=== PATIENT | male | born 1980 | race Caucasian/White ===

== ENCOUNTER 2016-11-27 19:30 | Observation (INO) | payer OTHER ==
[~2016-11-27] VITALS: Ht 167.6 cm; Wt 74.6 kg
[2016-11-27 19:48] VITALS: BP 136/88; PULSE 101; RESP 18; O2SAT 98
--- NOTE | 2016-11-27 20:34 | ED.REPORT ---
HPI-General Illness Date of Service Nov 27, 2016 ED Provider: Dr. Torres The pt is a 36 y/o male with a hx of ADD and recent appendectomy who presents to the ED complaining of worsening "1110" RLQ abdominal pain, onset today. The pt had an emergency open appendectomy at [facility] 2 days ago and was discharged earlier today. He did not experience any pain after surgery until today. He describes it as sharp pain which is exacerbated with movement and relieved at rest. He had a small BM this morning. He is also concerned about worsening erythema around his umbilical incision. He also reports mild, transient testicular pain earlier today which resolved soon after. He denies fever, chills, constipation, diarrhea, and any other sx at this time. The pt took 5 mg oxycodone about 30 minutes ago Nursing Notes Stated Complaint: POST OP ABDOMINAL PAIN Chief Complaint: Male Abdominal Pain Nursing Notes Reviewed: Yes Allergies: Coded Allergies: No Known Allergies (Unverified , 11/27/16) General Time Seen by MD: :17 Chief Complaint Abdominal pain Hx Obtained From: Patient Arrived By: Walk-in Sudden in Onset?: Yes Onset Occurred: 1 - 4 hours ago Symptom Duration: Since onset Location: : Abdomen Quality: Painful Radiation: : Does not radiate Severity: Current: Severe ("01/15") Severity: Maximum: Severe Recent Healthcare: Recent doctor visit, Previous surgery Past Medical History Past Medical History ADHD Past Surgical History Reports: Appendectomy Family History Denies pertinent family history Social History Alcohol Use: "Social" Other Social History: Good social support, Ambulatory Status Independent Review of Systems Reports: erythema around the umbilical incision Full Review of Systems Constitutional: Denies: Chills, Fever Eyes: Denies: Visual loss bilateral Ears / Nose / Throat: Denies: Sore throat Respiratory: Denies: Shortness of breath Cardiovascular: Denies: Chest pain GI: Reports: Abdominal pain, Denies: Constipation, Diarrhea Male: Reports Testicular pain (resolved), Denies Scrotal swelling, Denies Testicular swelling Musculoskeletal: Denies: Back pain Hematologic: Denies Bleeding Endocrine: Denies: Polyuria Skin: Denies Rash Allergy / Immune: Denies: Itching Neurologic: Denies: Headache Psychiatric: Denies: Change mental status Complete sys rev & neg: except as marked. Physical Exam Nursing note and vitals reviewed. Constitutional: Well-developed, well-nourished. Not diaphoretic, but appears uncomfortable. Head: Normocephalic and atraumatic. Mouth/Throat: Oropharynx is clear and moist. No oropharyngeal exudate. Eyes: EOM are normal. Pupils are equal, round, and reactive to light. Neck: Supple, no tracheal deviation. Cardiovascular: Normal rate, regular rhythm. Equal and intact distal pulses throughout. Pulmonary/Chest: Effort normal and breath sounds normal. No respiratory distress. Abdominal: Soft. Mild distension. Umbilical incision site appears intact with 8cm of surrounding erythema. There is no induration and fluctuance. RLQ tenderness without rebound or guarding. Mild erythema around the right laparotomy site. Bowel sounds present. Musculoskeletal: Range of motion grossly intact, moving all extremities. No edema or tenderness appreciated. Neurological: AOx3. Grossly nonfocal exam. Strength and sensation intact and equal to bilateral upper and lower extremities. Skin: Warm and dry, no rashes or pallor appreciated. Psychiatric: Appropriate mood and affect. Behavior appears normal. Male : No testicular tenderness, masses, or swelling. Vital Signs Vital Signs Date Time Temp Pulse Resp B/P Pulse Ox O2 Delivery O2 Flow Rate FiO2 11/27/16 19:48 37.2 101 18 136/88 98 Room Air Initial VS: Reviewed Interpretation & Diagnostics Lab Results Interpretation Result Diagram: 11/27/16214211/27/162142 Test 11/27/16 21:43 11/27/16 22:50 White Blood Count 10.6th/mm3 (3.8-10.1) Red Blood Count 4.96mil/mm3 (4.40-5.80) Hemoglobin 14.9g/dL (13.8-17.2) Hematocrit 44.3% (41.0-50.0) Mean Corpuscular Volume 89.3fL (81-100) Mean Corpuscular Hemoglobin 30.0pg (27.0-35.0) Mean Corpuscular Hemoglobin Concent 33.6% (32.0-37.0) Red Cell Distribution Width 12.7% (12.3-15.4) Platelet Count 302bil/L (150-400) Neutrophils (%) (Auto) 73.2% (40-74) Lymphocytes (%) (Auto) 18.1% (14-46) Monocytes (%) (Auto) 5.3% (4-12) Eosinophils (%) (Auto) 2.9% (0-5) Basophils (%) (Auto) 0.3% (0-3) Sodium Level 139mEq/L (134-144) Potassium Level 4.3mEq/L (3.5-5.2) Chloride Level 102mEq/L (97-108) Carbon Dioxide Level 19mmol/L (18-29) Blood Urea Nitrogen 11mg/dL (6-20) Creatinine 0.93mg/dL (0.76-1.27) Estimat Glomerular Filtration Rate 99mL/min (>59) Glucose Level 92mg/dL (60-99) Lactic Acid Level 1.4mmol/L (0.4-2.0) Calcium Level 9.1mg/dL (8.5-10.1) Total Bilirubin 0.4mg/dL (0.0-1.2) Aspartate Amino Transf (AST/SGOT) 23U/L (0-50) Alanine Aminotransferase (ALT/SGPT) 32U/L (0-44) Alkaline Phosphatase 99U/L (25-150) Total Protein 7.1g/dL (6.4-8.4) Albumin 4.3g/dL (3.4-5.0) Hold Purple Top Tube Received (Received) Hold Blue Top Tube Received (Received) Hold Corder Top Tube Received (Received) CT Abd / Pelvis Interpretation Approximate 5x3.6x5.3 cm fluid collection in the right lower paracolic gutter. There is no clear rim enhancement. This may represent postoperative fluid but I cannot exclude early/developing abscess. Mild pneumoperitoneum and soft tissue emphysema in the body wall consistent with recent surgery. Residual/resolving cecal colitis. No small bowel dilation. Moderate fecal debris in the ascending colon. Signed by Dr. Kristian Jay 11/27/16 23:28 Study type: Abdominal CT IV contrast Re-Eval/Medical Decision Med Decision/Clinical Course In summary, 36-year-old male with a history notable for recent appendicitis status post appendectomy 2 days ago at [facility] presenting to the ED for evaluation of worsening abdominal pain since earlier today. Differential is broad and includes postsurgical infection, perforated viscus, peritonitis, necrotizing infection of the skin and soft tissue. Currently afebrile, however appears uncomfortable. There is some surrounding erythema around his umbilical incision that he states is new since earlier today. Mild distention and moderate tenderness to palpation throughout without rebound or guarding. CT scan demonstrates a 5 x 4 x 5 cm fluid collection in the right lower paracolic gutter that may be postoperative fluid but cannot exclude early/developing abscess, as well as the other findings noted above. Given the patient's significant pain and concern for soft tissue infection after recent surgery, Dr. Shelton was consulted; appreciate his involvement. Laboratory studies reviewed, notable for a white blood cell count of 10.6, otherwise CBC grossly within normal limits. CMP grossly within normal limits, mildly tachycardic upon arrival with a temperature of 37.2, otherwise vitals grossly within normal limits. Patient given IV fluids and morphine here in the ED with mild improvement in symptoms. After discussion with Dr. Shelton, he contacted [facility] to discuss the patient given his recent discharge. After further discussion with the patient, decision was made to admit for further management and evaluation, start the patient on IV antibiotics, and monitor his incision. Patient agreeable to the plan as stated, no further questions. Time of Eval: 22:23 Re-Evaluation/Progress Note: xray done. will consult surgeon. if labs and imaging ok. will be dc wilth abx. Time of Eval: 00:06 Re-Evaluation/Progress Note: Dr. Kam at bedside, discussing the options to discharge the pt to [facility] or admit here. Consultation #1: Referral / Consult Name: Gen Kam MD Consulted With: Surgeon Call Returned at: 23:16 [employer] Crew Lead: Will see patient Note: Dr. Kam will see the pt in the ED. Consultation #2: Referral / Consult Name: Gen Kam MD Consulted With: Surgeon Call Returned at: 23:37 Note: Dr. Kam saw the pt. He will call [facility] to confirm they will admit the pt. Consultation #3: Referral / Consult Name: Gen Kam MD Consulted With: Surgeon Call Returned at: 00:06 Note: As per Dr. Kam, [facility] recommends the pt return to the ED there and may admit him depending on the evaluation. Counseled Regarding: Diagnosis, Lab results, Need for admission Discharge & Departure Primary Impression: Wound infection after surgery Encounter type: initial encounter Qualified Code: T81.4XXA - Infection following a procedure, initial encounter Disposition: ADMITTED TO HOSPITAL Referrals: Caleb Zamarripa DO (PCP) Scribe Attestation Portions of this note were transcribed by Betsey Tran. I,, personally performed the history,physical exam and medical decision-making;I reviewed and confirmed the accuracy of the information in the transcribed note. Signed by Matt Freitas. 11/27/16 copies to: Caleb Zamarripa William B MD Nov 27, 2016 20:34 Betsey Tran Nov 27, 2016 22:26
[2016-11-27 21:49] LABS: BASOPHILS % (AUTO) 0.3 % (0-3); EOSINOPHILS % (AUTO) 2.9 % (0-5); MONOCYTES % (AUTO) 5.3 % (4-12); Mean Corpuscular Volume 89.3 fL (81-100); NEUTROPHILS % (AUTO) 73.2 % (40-74); Platelet Count 302 bil/L (150-400)
[2016-11-27] MEDS ORDERED: 0.9% Sodium Chloride 1,000 ML IV ONE (22:25)
[2016-11-28] MEDS ORDERED: HYDROmorphone 1 mg/mL Inj IVPUSH PRN (00:25)
[2016-11-28] MEDS: Sodium Chloride LOK Flush 10 mL Syringe IVFLUSH SCH ×2 (00:30→09:55)
[2016-11-28] MEDS: Clindamycin Inj 600 MG in IV Premix 1 EACH IV SCH ×2 (01:10→09:55)
[2016-11-28 01:33] VITALS: PULSE 98; RESP 22
[2016-11-28] MEDS: Piperacillin-Tazo 3.375 Gm Inj 3.375 GM in Dextrose 5% Minibag Plus 50 ML IV SCH ×2 (01:50→10:52)
[2016-11-28 02:00] VITALS: BP 124/78; PULSE 93; RESP 24; O2SAT 100
[2016-11-28] MEDS ORDERED: DEXT10TA8 PO (02:29)
--- NOTE | 2016-11-28 03:04 | NUR ---
Admit Patient arrived from ED at 0135. Patient A&OX3. Complains of abdominal pain 09/14. Peripheral IV Patent. by bedside. Vitals stable. Report given by Chantell XIONG.
--- NOTE | 2016-11-28 04:44 | HP ---
[address] [address] HISTORY AND PHYSICAL PATIENT: MACKENZIE KOO : 1980 MR#: [id number] ADMIT: 11/28/2016 JOB ID: [id number] DATE OF SERVICE: 11/28/2016 CHIEF COMPLAINT/IDENTIFICATION: A 36-year-old male with the postoperative pain and erythema on his wound. HISTORY OF PRESENT ILLNESS: The patient presented to [facility] and underwent a laparoscopic converted to open appendectomy. According to the patient and his , surgery ended around midnight Wednesday night/ morning, and the patient was told that they had to convert to open surgery because the appendix was behind the colon. He reports that he was told his appendix had not perforated, and he was discharged this morning from [facility] on no antibiotic. He reports that this morning he was passing gas and had a bowel movement this morning and was taking regular food. He was discharged from [facility] and came up to his home on [place] where he noted transient testicular pain that resolved, gas pains and bloating and became quite concerned as his wound became markedly erythematous compared to this morning. His has photos from this morning that we can compare to his exam now. PAST MEDICAL HISTORY: ADD. post concussive syndrome. MEDICATIONS: P.r.n. oxycodone since his surgery. ALLERGIES: None. SOCIAL HISTORY: Lives on [place] with his /significant other. He denies tobacco use, denies the use of alcohol on a daily basis. REVIEW OF SYSTEMS: Per Dr. Torres, see ER note. PHYSICAL EXAMINATION: Vital signs recorded in the EMR. His temperature is 37.2, his pulse is 101, his blood pressure is 136/88. His room air saturation is 98. His BMI is recorded at 26. HEENT: Normocephalic, atraumatic, facial tattoos, spaces for gauges in his earlobes. Neck is supple. Lungs are clear. Heart sounds are regular. His abdomen is fairly distended, somewhat quiet, somewhat tympanic. He has a periumbilical laparoscopic incision as well as two others and he has a right lower quadrant McBurney's incision there. They are all closed with Dermabond. He has marked erythema that blanches on both the periumbilical and the right lower quadrant incision with tenderness, without any drainage from the wounds. He does not have peritonitis. Extremities are without edema. Neurologically he is intact. LABORATORIES: Show white count of 10.6, hematocrit of 44, platelet count of 302. Normal chemistries. Normal liver function tests. Lactic acid 1.4. CT scan: [facility] and I have reviewed both the images and the [facility] report. I have concurred that these are findings consistent with being postop day 1-2 status post laparoscopic converted to open appendectomy without any obvious intraabdominal abscess though there is slightly more fluid and inflammatory reaction around the cecum than one would hope for from an uncomplicated appendectomy. IMPRESSION AND PLAN: A 36-year-old man who may simply be having an exacerbation of normal postoperative pain due to early discharge and transportation, but with his complaint of increased pain in association with increased erythema on his wounds, I am concerned that this represents an early postoperative soft tissue infection that needs to be taken seriously. I have talked to Dr. Mejias, the surgeon home restoration service cleaner down at [facility], and he agrees that ideally the patient would be reevaluated by the primary operating team. He is open to having the patient transferred down there from our ER to be seen in their emergency department but cannot guarantee me that he would necessarily admit the patient. Therefore I offered Mr. Lima the option of returning to [facility] with the possibility that he would simply be seen and discharged without any further treatment versus I being willing to admit him to our service here for treatment of possible early soft tissue infection following appendectomy with IV antibiotics and reevaluation in the morning. I have outlined a tentative plan to him of admitting [facility] with reevaluation with repeat examination and repeat white count in the morning. If he seems clinically stable and has no real change in his erythema, we may chalk that up to perioperative trauma and send him out without further antibiotics. If he does respond to antibiotics with an improved appearance of his wound, he will likely be discharged on oral antibiotics. The patient is seen tonight with Dr. Duenas who will be working with Dr. Street this weekend, and therefore there will be some continuity of exams. Given options, the patient elected to stay with us. We will admit him and put him on IV antibiotics.
[2016-11-28 06:00] VITALS: BP 113/69; PULSE 82; RESP 20; O2SAT 95
[2016-11-28 07:27] LABS: BASOPHILS % (AUTO) 0.3 % (0-3); EOSINOPHILS % (AUTO) 3.5 % (0-5); MONOCYTES % (AUTO) 9.8 % (4-12); Mean Corpuscular Hemoglobin 30.2 pg (27.0-35.0); NEUTROPHILS % (AUTO) 64.4 % (40-74); Platelet Count 273 bil/L (150-400)
[2016-11-28] MEDS ORDERED: Senna-Docusate 8.6-50 mg Tablet PO SCH (08:30)
[2016-11-28] MEDS ORDERED: Polyethylene Glycol (PEG) 17 Gm Powder PO SCH (08:30)
[2016-11-28] MEDS ORDERED: Sodium Biphos-Phos 133 mL Enema RECTAL PRN (08:50)
--- NOTE | 2016-11-28 08:56 | PCM.PNSURG ---
Subjective Date of Service: Nov 28, 2016 Date of Service: Nov 28, 2016 Visit Information: Reason for Visit Post Surgical Wound Infection Surgery/Surgery Date Post-Op Day # 4 (at [facility] in [place]) Date of Admission: Nov 28, 2016 at 01:21 Hospital Day # 1 Subjective: Feels like wounds actually look less red. Still has continued abdominal bloating , distension and RLQ discomfort. Unable to pass gas and feels like he really needs to. Willing to try suppository. Tolerating some fluids PO without N/V. WBC down and afebrile overnight. Objective Vital Sign- Last 8 Hours Date Time Temp Pulse Resp B/P Pulse Ox O2 Delivery O2 Flow Rate FiO2 11/28/16 06:00 36.8 82 20 113/69 95 Room Air 11/28/16 02:00 36.9 93 24 124/78 100 Room Air 11/28/16 01:33 98 22 Intake and Output- Last 8 Hour 11/28/16 Cumulative From/Thru 06:58 11/27/16 19:48 - 11/28/16 06:49 Intake Total 1150 ml 1150 ml Balance 1150 ml 1150 ml IV Total 1150 ml 1150 ml General: Alert, Oriented X3, Cooperative, No Acute Distress Lungs: Other (Breathing comfortably on room air.) Heart: Other (Hemodynamically normal. No tachycardia.) Abdomen: Other (Moderate distension. RLQ incision and two port site wounds with dermabond and surround blanching erythema that appears slightly improved or stable from admission. No fluctuance, drainage.) Neuro: Grossly Neurologically Intact Result Diagram: 11/28/16 0715 11/27/16 2143 Assessment & Plan Impression 36 yo M with acute appendicitis s/p laparoscopic converted to open appendectomy at [facility] on 11/25 and discharged on 11/27. Presented to [facility] with worsening abdominal pain, distension and new erythematous skin surrounding all abdominal incisions. Admitted for IV antibiotics, wound observation and bowel regimen. Received clindamycin and zosyn with subjective improvement or dawson wound erythema and leukocytosis resolved. Continues to have abdominal distension and bloating without good bowel function. Problems: Plan Pain: prn oxycoodone, tylenol, ibuprofen CV/P: no issues FEN/GI: Regular diet as tolerated, anti emetics prn, bowel regimen BID miralax/ shawn-docusate, bisacodyl suppository this morning to encourage gas and BM, if unsuccessful try enema. Heme/ID: leukocytosis resolved, afebrile, unclear etiology of mild leukocytosis and dawson wound erythema could be bruising or dermabond reaction. Plan to observe for clinical improvement in abdominal pain this morning and likely transition to Augmentin PO Dispo: Potential discharge today versus tomorrow on 7 day course of oral antibiotics. Will await return of bowel function and improvement in abdominal pain. Ruth Duenas MD Nov 28, 2016 08:56
--- NOTE | 2016-11-28 08:57 | DRSVH ---
PROCEDURE: CT ABDOMEN AND PELVIS WITH CONTRAST ([id number]) INDICATIONS: Appendectomy 48 hours ago TECHNIQUE: After the administration of intravenous contrast, 5 mm thick sections acquired from the diaphragm to the symphysis. 5 mm coronal and sagittal reformats were acquired. For radiation dose reduction, the following was used: automated exposure control, adjustment of mA and/or kV according to patient siz e. COMPARISON: None. FINDINGS: Image quality: Excellent. ABDOMEN: Lung bases: Linear streaky opacities are present within the bases bilaterally. Solid organs: Liver is enlarged with steatosis. The spleen is normal in size and enhancement. Gallb ladder is unremarkable. Biliary system is non dilated. Pancreas enhances normally. No adrenal nodu les. Kidneys demonstrate normal size and enhancement, without hydronephrosis. Peritoneum and bowel: Bowel loops are nonobstructed. There is a mild appearance of thickening around the cecum suspected to be resolving post inflammatory change. No free fluid or air. There is promin ent stool within the descending colon. Scattered mild free fluid is present within the right lower qu adrant without rim-enhancing abscess. Largest area measures 5 cm. Punctate free air is noted within t he abdomen consistent with recent surgery. Nodes and vessels: No retroperitoneal or mesenteric adenopathy by size criteria. Aorta and inferior vena cava are normal in size. Miscellaneous: Containing hernia Subcutaneous air is present along the anterior abdomen. PELVIS: Genitourinary: Bladder wall thickness is normal. Miscellaneous: No inguinal hernias or adenopathy. Bones: No suspicious bony lesions. No vertebral body compression fractures. IMPRESSION: 1. Status post appendectomy with scattered free fluid in the right lower quadrant without well-define d rim-enhancing abscess. Subcutaneous air as well as minimal pneumoperitoneum is noted consistent wit h postoperative change. Continued interval clinical and imaging followup is recommended. Dictated by: Amy Neff M.D. on 11/28/2016 at 8:41 Approved by: Amy Neff M.D. on 11/28/2016 at 8:55
--- NOTE | 2016-11-28 09:13 | DRSVH ---
PROCEDURE: X-RAY CHEST ONE VIEW ([id number]) INDICATIONS: abdominal pain s/p appy; eval free air, other abnl TECHNIQUE: One view of the chest was acquired. COMPARISON: None. FINDINGS: Surgical changes and devices: None. Lungs and pleura: No pleural effusions or pneumothorax. Lungs are clear. Mediastinum: Mediastinal contours appear normal. Heart size is normal. Bones and chest wall: No suspicious bony lesions. Overlying soft tissues appear unremarkable. IMPRESSION: No acute pulmonary process. Dictated by: Amy Neff M.D. on 11/28/2016 at 9:11 Approved by: Amy Neff M.D. on 11/28/2016 at 9:11
[2016-11-28 09:14] VITALS: BP 114/71; PULSE 87; RESP 17; O2SAT 96
--- NOTE | 2016-11-28 12:08 | PCM.DISURG ---
Surgical Discharge Instruction Date of Service Nov 28, 2016 Dates of Hospitalization Date of Hospital Admission Nov 28, 2016 at 01:21 Providers Admitting Physician: Gen Kam MD Primary Care Physician: Other,Physician Attending Physician: Gen Kam MD Diet Discharge Diet: Other (Avoid constipating foods, stick to easy to digest items - smoothies, prune juice, avoid raw vegetables until have regular bowel movements.) Activity Discharge Activity-General: Balance rest and activity, No lifting >15 pounds for 2 weeks Dressing and Incisional Care Hygiene: May shower Additional Instructions Discharge Instructions Take prescribed antibiotic - 5 days of Augmentin. Follow Up Plan Follow Up Plan Follow up as scheduled with your surgical team at [facility]. If issues between now and appointment, please call our General Surgery clinic to be seen. Ruth Duenas MD Nov 28, 2016 12:08
[2016-11-28] MEDS ORDERED: Acetaminophen PO (12:12)
[2016-11-28] MEDS ORDERED: AMOX-366 PO (12:12)
[2016-11-28] MEDS ORDERED: IBUP-1827 PO (12:12)
[2016-11-28] MEDS ORDERED: OXYC-530 PO (12:12)
[2016-11-28] MEDS ORDERED: POLY17PO6 PO (12:12)
--- NOTE | 2016-11-28 12:45 | NUR ---
Social Work: Screening/Discharge/Multidisciplinary Rounds D: EMR reviewed. Pt is a 36 y/o male admitted [facility] - no readmit score assigned - for post surgical wound infection per H&P. Pt's insurance is [employer]. Pt's NOK is spouse Tory Mistry ([phone]). Pt lives at home with family on [place]. SW screened pt's EMR - pt does not screen in for full assessment. Pt encouraged to provide completed copy of DPOA/advanced directive ppw to hospital. SW discussed pt in multidisciplinary rounds regarding potential discharge planning needs. No anticipated discharge needs identified, no MD orders received. A: Pt who is independent at baseline. P: Pt to discharge home with spouse via POV. Pt does not have concerns regarding discharge. SW discussed pt in multidisciplinary rounds regarding potential discharge planning needs. No anticipated discharge needs identified, no MD orders received. BARRY Dorman
[2016-11-28 12:57] VITALS: BP 128/85; PULSE 94; RESP 18; O2SAT 99
--- NOTE | 2016-11-28 13:35 | NUR ---
DISCHARGE Patient discharged at 1330, will drive him home. Patient denies chest pain, shortness of breath, and nausea. Patient has had a bowel movement today and feels the abdomen pain is controlled with PO medications. Medications reviewed and new RX provided, patient verbalized understanding. Abdomen sites appear to be healing and patient given care notes on surgical infection. IV catheter removed intact, patient's belonging accounted for and returned to patient.
--- NOTE | 2016-12-01 10:26 | PCM.DC.SUR ---
Discharge Summary Date of Service: Dec 01, 2016 Date of Hospital Admission: Nov 28, 2016 at 01:21 Date of Discharge: Nov 29, 2016 Diagnosis at Time of Discharge 1. Constipation 2. Surgical site erythema Problems: Brief History and Physical: A 36-year-old man who may simply be having an exacerbation of normal postoperative pain due to early discharge and transportation, but with his complaint of increased pain in association with increased erythema on his wounds, I am concerned that this represents an early postoperative soft tissue infection that needs to be taken seriously. I have talked to Dr. Mejias, the surgeon fashion photographer down at [facility], and he agrees that ideally the patient would be reevaluated by the primary operating team. He is open to having the patient transferred down there from our ER to be seen in their emergency department but cannot guarantee me that he would necessarily admit the patient. Therefore I offered Mr. Lima the option of returning to [facility] with the possibility that he would simply be seen and discharged without any further treatment versus I being willing to admit him to our service here for treatment of possible early soft tissue infection following appendectomy with IV antibiotics and reevaluation in the morning. I have outlined a tentative plan to him of admitting him for IV antibiotics tonight with reevaluation with repeat examination and repeat white count in the morning. If he seems clinically stable and has no real change in his erythema, we may chalk that up to perioperative trauma and send him out without further antibiotics. If he does respond to antibiotics with an improved appearance of his wound, he will likely be discharged on oral antibiotics. The patient is seen tonight with Dr. Duenas who will be working with Dr. Street this weekend, and therefore there will be some continuity of exams. Given options, the patient elected to stay with us. We will admit him and put him on IV antibiotics. Hospital Course: Clarence was admitted and received IV antibiotics with no change in the appearance of his surgical wounds. He also received a more aggressive bowel regimen and found significant relief in his abdominal discomfort after having 2 larger bowel movements. His pain was well controlled, his wounds looked unchanged and we chose to empirically treat him for a possible wound infection or cellulitis with 5 days of Augmentin at discharge. He has follow up with [facility] and will continue his care with his operative General Surgery team there. He met all goals for safe discharge home. Follow-up Plan: [facility] General Surgery in 1 week. ([Acetaminophen]) 325 MG TABLET 650 MG PO Q6H PRN PRN Pain or Fever Amoxicillin/Clav K 875-125 mg (Augmentin 875-125 mg) 1 Each Tablet 1 TABLET PO BID Dextroamphetamine/Amphetamine (Adderall) 10 Mg Tablet 10 MG PO DAILY PRN PRN For Anxiety or Agitation (Reported) Ibuprofen (Ibuprofen) 600 Mg Tablet 600 MG PO QID PRN PRN For Pain Polyethylene Glycol 3350 (Miralax) 17 Gm Powd.pack 17 GM PO BID oxyCODONE (oxyCODONE) 5 Mg Tablet 5-10 MG PO Q4H PRN PRN For Severe Pain Ruth Duenas MD Dec 01, 2016 10:26
== END 2016-11-28 13:38 | disposition home or self-care (01) ==
LOC: SED 19:30 → OSC 11-28 01:21
PROVIDERS: ADMIT Surgery; ATTEND Surgery
DX: L76.82 Other postprocedural complications of skin and subcutaneous tissue (principal); L53.9 Erythematous condition, unspecified; K59.00 Constipation, unspecified; R10.31 Right lower quadrant pain; Y83.8 Other surgical procedures as the cause of abnormal reaction of the patient, or of later complication, without mention of misadventure at the time of the procedure; Z90.49 Acquired absence of other specified parts of digestive tract
CPT/HCPCS: 36415; 71010; 74177; 80053; 83605; 85025; 96361; 96365; 96366; 96367; 96375; 96376; 99285; G0378; J2270; J2543; J7030; Q9967